=== PATIENT | female | born 1975 | race Caucasian/White ===

== ENCOUNTER 2018-10-24 13:34 | Outpatient (REF) | payer BC, SELFPAY ==
--- NOTE | 2018-10-24 11:00 | PAPFT_PTH ---
PATIENT: Milka Ho LOC: [facility] U#:[id number] AGE/SX: 43/F ROOM: RE10/24/[address]: Neha Browning : 1975 BED: DIS: 10/24/2018 SPEC #: [id number] RECD: 10/25/18 13:08 STATUS: LEO MARTINEZ #: [id number] ELLY: 10/24/18 11:[address]: Neha Browning DEPT: [facility] Cytology RECD BY: Paulette Mars Tissues: 1 - CX/ENDOCX FOR PAP SMEARS Procedures: PAP THIN PREP/UVM Screening HPV DNA PROBE Comments: [id number] (CHLAMYDIA/GC)
[2018-10-26 13:58] LABS: Chlamydia Result Negative; GC Result Negative; Specimen Description SEE COMMENTS
== END 2018-10-24 13:54 ==
LOC: NCHCN 13:34
PROVIDERS: PCP Registered Nurse; Visit Provider Registered Nurse
DX: Z11.3 Encounter for screening for infections with a predominantly sexual mode of transmission (principal); Z12.4 Encounter for screening for malignant neoplasm of cervix; Z11.51 Encounter for screening for human papillomavirus (HPV)
CPT/HCPCS: 87491; 87591; 88142; 87624

== ENCOUNTER 2019-10-31 10:53 | Outpatient (REF) | payer OTHER, SELFPAY ==
[2019-10-31 22:46] LABS: HCT 42.1 % (36.0-46.0); HGB 14.6 g/dL (12.0-15.5); Mean Corp. HGB Concentration 34.7 g/dL (32.0-36.0); Mean Corpuscular Hemoglobin 29.5 pg (27.0-33.0); Mean Corpuscular Volume 85.1 fL (80-95); Mean Platelet Volume 10.4 fL (8.0-11.0); Platelet Count 356 x1000/uL (130-400); RBC 4.95 m/cumm (4.00-5.20); White Blood Cell Count 8.46 k/cumm (4.4-10.8)
[2019-10-31 22:58] LABS: Hemoglobin A1C 5.3 % (3.8-5.6)
[2019-10-31 23:17] LABS: Anion Gap 7.3 mmol/L (3-11); BUN 14 mg/dL (7-18); CO2 26.7 mmol/L (21.0-32.0); CREATININE 1.09 mg/dL (0.55-1.02); Calcium 9.3 mg/dL (8.5-10.1); Calculated LDL 134 mg/dL (<100); Chloride 104 mmol/L (98-107); Cholesterol 190 mg/dL (<200); Estimated GFR 54.04 (mL/min/1.73m2); Glucose 80 mg/dL (74-106); HDL Cholesterol 40 mg/dL (40-60); Potassium 4.6 mmol/L (3.5-5.1); Sodium 138 mmol/L (136-145); TSH 3.34 uIU/mL (0.36-3.74); Triglyceride 83 mg/dL (<150); Vitamin B12 338 pg/mL (193-986)
[2019-11-02 05:34] LABS: Vitamin D 25 Total 8.6 ng/ml (30-100)
== END 2019-10-31 11:13 ==
LOC: NCHCN 10:53
PROVIDERS: PCP Registered Nurse; Visit Provider Nurse Practitioner Family
DX: F31.81 Bipolar II disorder (principal); Z81.8 Family history of other mental and behavioral disorders; Z13.228 Encounter for screening for other metabolic disorders; Z13.29 Encounter for screening for other suspected endocrine disorder; Z13.0 Encounter for screening for diseases of the blood and blood-forming organs and certain disorders involving the immune mechanism; Z13.21 Encounter for screening for nutritional disorder; Z13.220 Encounter for screening for lipoid disorders
CPT/HCPCS: 80048; 80061; 82306; 85027; 82607; 83036; 84443

== ENCOUNTER 2021-05-01 14:17 | Outpatient (REF) | payer OTHER, SELFPAY ==
[2021-05-01 20:56] LABS: HCT 42.1 % (36.0-46.0); HGB 13.3 g/dL (11.2-15.7); MCH 27.1 pg (27.0-33.0); MCHC 31.6 % (32.0-36.0); MCV 85.7 fL (80-95); MPV 10.2 fL (8.0-11.0); Platelet Count 381 10^3/uL (130-400); RBC 4.91 10^6/uL (3.93-5.22); RDW-SD 44.2 fL
[2021-05-02 09:04] LABS: FREE T4 0.91 ng/dL (0.76-1.46)
[2021-05-02 17:45] LABS: Thyroglobulin Antibody 20 U/mL (<=60); Thyroperoxidase Antibody 453 U/mL (<=60)
== END 2021-05-01 14:18 | disposition home or self-care (01) ==
LOC: NCHCN 14:17
PROVIDERS: PCP Registered Nurse; Visit Provider Nurse Practitioner Family
DX: R42 Dizziness and giddiness (principal); N92.4 Excessive bleeding in the premenopausal period; F31.81 Bipolar II disorder
CPT/HCPCS: 85027; 84439; 84443; 86376; 86800

== ENCOUNTER 2023-02-05 08:44 | Outpatient (REF) | payer OTHER, SELFPAY ==
[2023-02-04 20:55] LABS: HCT 43.9 % (36.0-46.0); HGB 14.7 g/dL (11.2-15.7); MCH 28.9 pg (27.0-33.0); MCHC 33.5 % (32.0-36.0); MCV 86 fL (80-95); MPV 10.4 fL (8.0-11.0); Platelet Count 381 10^3/uL (130-400); RBC 5.08 10^6/uL (3.93-5.22); RDW 12.7 % (11.7-14.6); WBC 7.86 10^3/uL (4.4-10.8)
[2023-02-04 21:21] LABS: ALT 34 U/L (14-59); AST 28 U/L (15-37); Albumin 3.7 g/dL (3.4-5.0); Alkaline Phosphatase 74 U/L (46-116); Anion Gap 7.3 mmol/L (3-11); BUN 12 mg/dL (7-18); Bilirubin, Total 0.4 mg/dL (0.2-1.0); CO2 26.7 mmol/L (21.0-32.0); CREATININE 1.2 mg/dL (0.55-1.02); Calcium 9.2 mg/dL (8.5-10.1); Chloride 104 mmol/L (98-107); Estimated GFR 55.49 (mL/min/1.73m2); Glucose 90 mg/dL (74-106); Potassium 4.4 mmol/L (3.5-5.1); Sodium 138 mmol/L (136-145); Total Protein 7.5 g/dL (6.4-8.2)
[2023-02-04 21:31] LABS: Lipase 239 U/L (16-77)
[2023-02-08 14:30] LABS: Helicobacter pylori Ag, Feces Negative (Negative)
== END 2023-02-05 08:45 | disposition home or self-care (01) ==
LOC: NCHCN 08:44
PROVIDERS: PCP Registered Nurse; Visit Provider Family Medicine
DX: R10.9 Unspecified abdominal pain (principal); R79.89 Other specified abnormal findings of blood chemistry
CPT/HCPCS: 80053; 83690; 85027; 87338

== ENCOUNTER 2023-02-24 10:54 | Outpatient (REF) | payer OTHER, SELFPAY ==
[2023-02-24 17:58] LABS: TSH 5.18 uIU/mL (0.36-3.74)
[2023-02-24 18:11] LABS: Hemoglobin A1C 5.2 % (<5.7)
[2023-02-25 12:04] LABS: FREE T4 0.88 ng/dL (0.76-1.46)
== END 2023-02-24 10:55 | disposition home or self-care (01) ==
LOC: NCHCN 10:54
PROVIDERS: PCP Registered Nurse; Visit Provider Nurse Practitioner Family
DX: E03.9 Hypothyroidism, unspecified (principal); Z00.00 Encounter for general adult medical examination without abnormal findings; Z13.1 Encounter for screening for diabetes mellitus
CPT/HCPCS: 83036; 84439; 84443

== ENCOUNTER 2023-05-27 08:15 | Day surgery (SDC) | payer OTHER, SELFPAY ==
--- NOTE | 2023-05-26 19:04 | W.PM.DSUDISC ---
Date of service: 05/27/23 Time of Service: 09:59 Discharge Plan Disposition Patient Disposition: Home Condition: Good Discharge Details Reason For Visit: Screening colonoscopy Attending Provider: Dirk Caicedo Primary Care Provider: Neha Browning Home Meds and New Rx's Prescriptions: Continued famotidine [Acid Geospatial Engineer (famotidine)] 20 mg tablet 20 mg PO BID Discontinued bisacodyl [Dulcolax (bisacodyl)] 5 mg tablet,delayed release (DR/EC) 5 mg PO ONCE Qty: 4 0RF Rx Instructions: Colonoscopy Bowel Prep- Per Instructions polyethylene glycol 3350 17 gram/dose powder 238 g PO ONCE Qty: 238 0RF Rx Instructions: Colonoscopy Bowel Prep- Per Instructions Discharge Instructions Instructions: Colorectal Polyps (GEN) Additional Instructions: Milka, we were able to complete your colonoscopy today without any difficulty. I did find 2 polyps. These were both quite small. I removed them both completely. There is take a week or so for me to get the results of the polyp report, and once I have that information I will be in touch regarding my recommendations for your next colonoscopy. If you have any questions in the meantime, please do not hesitate to call. 1. If tolerated, consume a soft, low fiber diet for 1-2 days. 2. Do not drive, drink alcohol, operate machinery, make critical decisions, or do activities that require coordination or balance for 24 hours. 3. Because air was put into your colon during the procedure, expelling air from your rectum (passing gas or farting) is normal. 4. You may not have a bowel movement for 1-3 days because of the colonoscopy prep. This is normal. 5. Go directly to the emergency room if you notice any of the following: Develop chills (warm to touch), or if you have a thermometer and your temperature is above 101 Difficulty breathing or difficultly swallowing Persistent vomiting Severe abdominal pain, other than gas cramps Severe chest pain Black, tarry stools Any bleeding ? exceeding one tablespoon 6. Call your physician if the site where your intravenous was started becomes red, swollen, painful, and warm to touch. 7. Your physician has reviewed your pre-procedure medications. Please continue to take those medications as previously ordered. You will be given specific information/education regarding any changes to your medications before leaving. Activity:: Activity as Tolerated Diet:: As Tolerated Discharge Orders Discharge Orders: Discharge Order (Routine); Ordered 05/26/23 Ordered By: Dirk Caicedo DS: Diagnosis Discharge Diagnosis (1) Screen for colon cancer: Status: Acute Asessment and Plan: Follow-up on polypectomy results
--- NOTE | 2023-05-26 19:05 | W.COLOREPORT ---
Date of service: 05/27/23 Time of Service: 10:00 Colonoscopy Report Date of procedure: 05/27/23 Pre-op diagnosis general: Screening colonoscopy Post-op diagnosis procedure note: other (Colon polyps) Procedure: Colonoscopy Surgeon: Dirk Caicedo Anesthesia Type: General:No Airway Estimated blood loss (mL): 5 Pathology: other (0.25 cm cecal polyp, 0.25 cm polyp at 50 cm from the anus) Complications: None Disposition: same day Indications: Milka is 47 years old, and she needs her for screening colonoscopy Prep: Miralax/Dulcolax Procedure Start Time: 09:35 Procedure End Time: 09:49 Retraction Time: 9 Findings: 0.25 cm cecal polyp, 0.25 cm polyp at 50 cm from the anus Procedure Description: After the induction of monitored anesthetic care, and with the patient in left lateral decubitus position, I began by performing an external anorectal exam.? Perineum and skin were normal, as was the anal verge.? There was no evidence of external hemorrhoids.? Next, I performed a digital rectal exam.? I did not appreciate any abnormal findings.? Next, I advanced a colonoscope into the rectal vault.? I performed retroflexion.? I did not see signs of pathologic internal hemorrhoids.? Using insufflation, I then advanced the colonoscope beyond the rectal folds and into the sigmoid colon before advancing towards the cecum.? The quality of the prep was excellent.? The scope was noted to be in the cecum by identification of the ileocecal valve and appendiceal orifice.?Adjacent to the appendix was a 0.25 cecal polyp. It was slightly pedunculated. I was able to remove this with cold forceps. I then began withdrawing the colonoscope using repeated irrigation as necessary for full evaluation of the colonic mucosa. Around 50 cm from the anal verge I identified a 0.25 cm polyp. ?It appeared sessile in character. ?I was able to remove this with a cold forcep. ?I examined the site, and there was minimal bleeding. ?Once this was completed, I continued to withdraw the scope and examine the remainder of the colonic mucosa. ?Once the scope was withdrawn to the level of the rectum, great care was taken to examine portions of the rectal folds.? Finally, the scope was withdrawn and the patient was brought to the same-day surgery recovery unit as the anesthetic wore off. ?The findings and instructions were shared with the patient prior to discharge. Quanah Bowel Prep Quanah Bowel Prep Right Colon: 3 Left Colon: 3 Transverse Colon: 3 Total Score: 9
[2023-05-27 08:36] VITALS: BP 107/90; PULSE 69; RESP 16; TEMP 36.5; O2SAT 98
[2023-05-27] MEDS: Lactated Ringers 1,000 ML 80 ML IV (09:00)
--- NOTE | 2023-05-27 09:02 | W.ANESPRE ---
General Info Date of Service Date Performed: 05/27/23 Height: 5 ft 10 in Weight: 104.4 kg Body Mass Index (BMI): 33.0 Surgical Procedure: Operation Date: 05/27/23 09:20 Proposed Procedure Side Surgeon nataliya Caicedo MD Meds Allergies and Home Medications Allergies Allergy/AdvReac Type Severity Reaction Status Date / Time morphine Allergy Severe Uncoded 05/27/23 08:42 narcotics Allergy Unknown Other (See Uncoded 05/27/23 08:43 Comment) Home Medication Medication Instructions Recorded famotidine 20 mg tablet (Acid 20 mg PO BID 05/13/23 Traffic Division Commanding Officer (famotidine)) Current Visit Medications: Current Medications Generic Name Dose Route Start Last Admin Trade Name Freq PRN Reason Stop Dose Admin Hyoscyamine Sulfate 0.125 mg 05/26/23 19:06 Hyoscyamine 0.125 Mg Sl/Oral/Chew SL 06/25/23 19:05 DIRECTED PRN Ringer's Solution 1,000 mls @ 80 mls/hr 05/27/23 06:00 IV 05/27/23 23:59 INFUSION THUY IV Miscellaneous Supplies 1 each 05/27/23 06:00 Iv Access IV 05/27/23 23:59 DIRECTED THUY Ondansetron HCl 4 mg 05/26/23 19:06 Ondansetron 4 Mg/2 Ml Vial IVP 06/25/23 19:05 Q4H PRN PRN Nausea / Vomiting Sodium Chloride 0 ml 05/27/23 06:00 Normal Saline Flush 10 Ml Syr IV 05/27/23 23:59 PRN PRN Sodium Chloride 0 ml 05/27/23 06:00 Normal Saline 10 Ml Vial IJ 05/27/23 23:59 DIRECTED PRN Sterile Water 0 ml 05/27/23 06:00 Water,Injection,Sterile 10 Ml Vial IJ 05/27/23 23:59 DIRECTED PRN PFSH Active Problems Active Problems: Problem Status Onset Code Screen for colon cancer Z12.11 Bipolar 2 disorder F31.81 Urinary incontinence R32 Carpal tunnel syndrome G56.00 Medical History Medical History (Updated 05/27/23 @ 08:45 by Any Messina) delivery delivered x 2 GERD (gastroesophageal reflux disease) Surgical History Surgical History (Updated 05/27/23 @ 08:45 by Any Messina) Previous back surgery lower History of tubal ligation Tobacco Smoking/Tobacco Use Status: Former Tobacco Use Alcohol Alcohol Intake: current Alcohol intake frequency: holidays/special occasions only Alcohol type: beer Substance Use Substance use: Daily Substance use type: marijuana Details: alcohol: Marijuana: t-1, bowl Vital Signs and Lab Results Vital Signs Most Recent Vital Signs in EMR: Most Recent Vital Signs Temp Pulse Resp BP Pulse Ox 36.5 C 69 16 107/90 98 05/27/23 08:36 05/27/23 08:36 05/27/23 08:36 05/27/23 08:36 05/27/23 08:36 Lab Results Blood Type / Crossmatch: No Data to Display Complete Blood Count: No Data to Display Complete Metabolic Panel: No Data to Display Liver Function Panel: No Data to Display Coagulation Panel: No Data to Display Cardiac Panel: No Data to Display Arterial Blood Gas: No Data to Display Venous Blood Gas: No Data to Display Pancreas Panel: No Data to Display Thyroid Panel: No Data to Display Infectious Disease: No Data to Display Blood Cultures: No Data to Display Toxicology Panel: No Data to Display Panel: No Data to Display Anesthesia Assessment and Plan Anesthesia History Personal History: No History of Anesthesia Complications Family History: No Family History of Anesthesia Complications Exercise Tolerance Exercise Tolerance: Metabolic Equivalents>4 Cardiac & Pulmonary Exam Cardiac Exam: Normal S1/S2 Heart Sounds Pulmonary Exam: Clear Bilateral Breath Sounds Implantable Cardiac Device Does patient have a Pacemaker or an ICD?: No Airway Exam Known Difficult Airway: No Mallampati Class: 2 Mouth Opening: Normal (> 3cm) Thyromental Distance: Greater than 3 cm Neck Range of Motion: Full ROM Neck Circumference: Normal Teeth Condition: Normal Dentition ASA Classification ASA Score: ASA 2 Emergency Case?: No NPO Status NPO Status: NPO Clears >2 hours, Solids >8 hours Status Status: Negative HCG Anesthesia Plan Resuscitation Status: Full Code Anesthesia Technique: General Anesthesia Airway Planned: Natural Airway Monitors Used: Standard Monitors
[2023-05-27 09:18] VITALS: BMI 33.0
--- NOTE | 2023-05-27 09:41 | BOWEL_PTH ---
PATIENT: Milka Ho LOC: [facility] U#:[id number] AGE/SX: 47/F ROOM: RE05/27/[address]: Dirk Caicedo MD : 1975 BED: DIS: 05/27/2023 SPEC #: [id number] RECD: 05/27/23 12:44 STATUS: LEO RE #: [id number] ELLY: 05/27/23 09:[address]: Dirk Caicedo DEPT: Surgical Specimen RECD BY: Paulette Mars ENTERED: 05/27/23 12:45 SP TYPE: Bowel OTHR DR: Neha Browning Tissues: 1 - BIOPSY BOWEL 2 - BIOPSY BOWEL Procedures: GROSS AND MICRO LEVEL 4 Comments: [id number]
[2023-05-27 09:57] VITALS: BP 113/99; PULSE 81; RESP 18; TEMP 36.3; O2SAT 96
[2023-05-27 10:27] VITALS: BP 110/87; PULSE 72; RESP 18; TEMP 36.5; O2SAT 98
--- NOTE | 2023-05-27 10:35 | W.ANESPOSTOP ---
Postoperative Evaluation Date, Time and Location Date Performed: 05/27/23 Time Performed: 10:04 Patient Location: Day Surgery Unit Vital Signs Most Recent Imported Vital Signs: Most Recent Vital Signs Temp Pulse Resp BP Pulse Ox 36.5 C 72 18 110/87 98 05/27/23 10:27 05/27/23 10:27 05/27/23 10:27 05/27/23 10:27 05/27/23 10:27 Pain Score Most Recent Pain Score: Most Recent Pain Score Pain Level 0 05/27/23 10:27 Assessment Mental Status: Awake (Alert & Oriented to Patient Baseline) Airway and Respiratory Function: Patent airway with normal (patient baseline) respiratory exam Cardiovascular Function: Hemodynamically Stable Hydration Status: Adequately Hydrated Nausea & Vomiting: No Nausea or Vomiting Pain: Pt. Denies Any Pain Peripheral Nerve Block: Patient did not receive a nerve block
== END 2023-05-27 10:29 | disposition home or self-care (01) ==
LOC: SUR 08:15
PROVIDERS: PCP Registered Nurse; Visit Provider Surgery
PROC: 0DJD8ZZ Inspection of Lower Intestinal Tract, Via Natural or Artificial Opening Endoscopic (ICD-10-PCS; CPT 45378; principal; 2023-05-27 09:15)
DX: Z12.11 Encounter for screening for malignant neoplasm of colon (principal); D12.0 Benign neoplasm of cecum; K63.89 Other specified diseases of intestine
CPT/HCPCS: 45380; 81025; 88305

== ENCOUNTER 2024-05-23 16:35 | Outpatient (REF) | payer OTHER, SELFPAY ==
[2024-05-23 14:55] LABS: Hemoglobin A1C 5.5 % (<5.7)
[2024-05-23 15:06] LABS: ALT 20 U/L (14-59); AST 23 U/L (15-37); Albumin 3.7 g/dL (3.4-5.0); Alkaline Phosphatase 82 U/L (46-116); Anion Gap 4.3 mmol/L (3-11); BUN 12 mg/dL (7-18); CO2 29.7 mmol/L (21.0-32.0); CREATININE 1.2 mg/dL (0.55-1.02); Calcium 9.1 mg/dL (8.5-10.1); Calculated LDL 119 mg/dL (<100); Chloride 105 mmol/L (98-107); Cholesterol 192 mg/dL (<200); Estimated GFR 55.15 (mL/min/1.73m2); Glucose 88 mg/dL (74-106); HDL Cholesterol 53 mg/dL (40-60); Potassium 4.2 mmol/L (3.5-5.1); Sodium 139 mmol/L (136-145); TSH 7.76 uIU/mL (0.36-3.74); Total Protein 7.6 g/dL (6.4-8.2); Triglyceride 101 mg/dL (<150)
[2024-05-23 22:21] LABS: HIV-1/2 Ag & Ab Screen Negative (Negative)
[2024-05-23 22:22] LABS: Hepatitis C Ab w Rflx HCV PCR Negative (Negative)
[2024-05-23 22:26] LABS: FREE T4 0.87 ng/dL (0.76-1.46)
[2024-05-24 18:38] LABS: Thyroglobulin Antibody 216 U/mL (<=60); Thyroperoxidase Antibody 354 U/mL (<=60)
== END 2024-05-23 16:36 | disposition home or self-care (01) ==
LOC: NCHCN 16:35
PROVIDERS: PCP Registered Nurse; Visit Provider Nurse Practitioner Family
DX: E66.9 Obesity, unspecified (principal); E03.9 Hypothyroidism, unspecified; Z11.59 Encounter for screening for other viral diseases
CPT/HCPCS: 80053; 80061; 86803; 87389; 83036; 84439; 84443; 86376; 86800

== ENCOUNTER 2025-06-26 13:16 | Outpatient (REF) | payer OTHER, SELFPAY ==
[2025-06-26 15:36] LABS: Anion Gap 6.1 mmol/L (3-11); BUN 9 mg/dL (9-23); CO2 26.9 mmol/L (20.0-31.0); Calcium 9.3 mg/dL (8.3-10.6); Chloride 109 mmol/L (98-107); Glucose 81 mg/dL (74-106); Potassium 4.3 mmol/L (3.5-5.1); Sodium 142 mmol/L (136-145)
[2025-06-26 15:39] LABS: TSH 2.73 uIU/mL (0.55-4.78)
[2025-06-26 15:44] LABS: Hemoglobin A1C 4.9 % (<5.7)
== END 2025-06-26 13:17 | disposition home or self-care (01) ==
LOC: NCHCN 13:16
PROVIDERS: PCP Registered Nurse; Visit Provider Nurse Practitioner Family
DX: Z13.1 Encounter for screening for diabetes mellitus (principal); E03.9 Hypothyroidism, unspecified; G43.109 Migraine with aura, not intractable, without status migrainosus
CPT/HCPCS: 80048; 83036; 84443